=== PATIENT | female | born 1985 | race Two or more races ===

== ENCOUNTER 2017-12-23 09:03 | Day surgery (SDC) | payer OTHER ==
[2017-12-23] MEDS ORDERED: PROPOFOL 20 ML (13:34)
[2017-12-23] MEDS ORDERED: NEOSTIGMINE 3 MG/3 ML SYRINGE (13:34)
[2017-12-23] MEDS ORDERED: LIDOCAINE 2% (SDV) 5 ML INJ (13:34)
[2017-12-23] MEDS ORDERED: ROCURONIUM 50 MG INJ (13:34)
[2017-12-23] MEDS ORDERED: GLYCOPYRROLATE 0.4 MG INJ ×2 (13:34→14:21)
[2017-12-23] MEDS ORDERED: SUCCINYLCHOLINE CHLORIDE 100 MG/5 ML SYG IV (13:34)
[2017-12-23] MEDS ORDERED: MEPERIDINE 100 MG INJ (13:36)
[2017-12-23] MEDS: NEOMYC/POLYMYX/BACIT 30 GM OINT (13:36)
[2017-12-23] MEDS: COCAINE 4% 4 ML TOP (13:36)
[2017-12-23] MEDS: LIDOCAINE 1%/EPI (1:100,000) (MDV) 20 ML INJ (13:36)
[2017-12-23] MEDS ORDERED: DEXAMETHASONE 4 MG/ML 1 ML INJ (14:12)
[2017-12-23] MEDS ORDERED: ONDANSETRON 4 MG INJ (14:12)
[2017-12-23] MEDS: FENTAnyl 50 MCG/ML VIAL IV (14:55)
[2017-12-23] MEDS ORDERED: HYDROmorphONE 1 MG/5 ML IV SYRINGE IV ×3 (15:00)
[2017-12-23] MEDS ORDERED: LABETALOL HCL 20MG INJ IV (15:00)
[2017-12-23] MEDS ORDERED: DIPHENHYDRAMINE 50 MG INJ IV (15:00)
[2017-12-23] MEDS ORDERED: ONDANSETRON 4 MG INJ IV (15:00)
[2017-12-23] MEDS ORDERED: OXYCODONE/ACETAMINOPHEN (5/325) TAB PO (15:00)
[2017-12-23] MEDS ORDERED: hydrALAzine 20 MG INJ IV (15:00)
[2017-12-23] MEDS ORDERED: MEPERIDINE 25 MG INJ IV (15:00)
[2017-12-23] MEDS ORDERED: METOCLOPRAMIDE 10 MG INJ IV (15:00)
[2017-12-23] MEDS ORDERED: FENTAnyl 50 MCG/ML VIAL IV ×2 (15:00)
[2017-12-23] MEDS ORDERED: EPHEDrine SULFATE 50 MG/5 ML SYG IV (15:00)
[2017-12-23] MEDS ORDERED: MIDAZOLAM 1 MG/ML 2 ML INJ IV (15:00)
[2017-12-23] MEDS: OXYCODONE/ACETAMINOPHEN (5/325) TAB PO (15:45)
== END 2017-12-23 16:26 | disposition home or self-care (01) ==
LOC: SDS 09:03
DX: J34.2 Deviated nasal septum (principal)
CPT/HCPCS: 30140; 88300

== ENCOUNTER 2018-10-21 18:49 | Outpatient (CLI) | payer OTHER ==
[2018-10-21 20:40] LABS: ADD MAN DIFF? NO
[2018-10-21 20:46] LABS: WHITE BLOOD COUNT 14.1 10^3/ul (4.8-10.8)
[2018-10-21 20:46] LABS: BASOPHILS % 0.3 % (0.0-2.0); EOSINOPHILS # 0.2 10^3/ul (0.0-0.5); EOSINOPHILS % 1.4 % (0.0-7.0); HEMATOCRIT 33.2 % (37.0-47.0); HEMOGLOBIN 10.9 g/dl (12.0-16.0); LYMPHOCYTES # 1.9 10^3/ul (0.8-2.9); LYMPHOCYTES % 13.4 % (15.0-51.0); MEAN CORPUSCULAR HEMOGLOBIN 27.7 pg (29.0-33.0); MEAN CORPUSCULAR HGB CONC 32.8 g/dl (32.0-37.0); MEAN CORPUSCULAR VOLUME 84.5 fl (82.0-101.0); MONOCYTE # 0.9 10^3/ul (0.3-0.9); MONOCYTES % 6.6 % (0.0-11.0); NEUTROPHIL # 10.8 10^3/ul (1.6-7.5); NEUTROPHILS % 76.2 % (39.0-77.0); PLATELET COUNT 344 10^3/UL (140-415); RED BLOOD COUNT 3.93 10^6/ul (4.20-5.40); RED CELL DISTRIBUTION WIDTH 13.1 % (11.5-14.5)
[2018-10-21 20:54] LABS: ADD UMIC YES; UR ASCORBIC ACID NEGATIVE (NEGATIVE); UR BACTERIA FEW /HPF (NONE SEEN); UR BILIRUBIN (Dip) NEGATIVE (NEGATIVE); UR BLOOD (Dip) NEGATIVE (NEGATIVE); UR CLARITY SLIGHTLY CLOUDY (CLEAR); UR COLOR YELLOW (YELLOW); UR GLUCOSE (Dip) NEGATIVE (NEGATIVE); UR KETONES (Dip) NEGATIVE (NEGATIVE); UR LEUKOCYTE ESTERASE (Dip) TRACE Leu/ul (NEGATIVE); UR MUCUS FEW /HPF (NONE SEEN); UR NITRITE (Dip) NEGATIVE (NEGATIVE); UR RBC 1 /HPF (0-5); UR SPECIFIC GRAVITY (Dip) 1.019 (1.003-1.030); UR SQUAMOUS EPITHELIAL CELL FEW /HPF (FEW); UR TOTAL PROTEIN (Dip) NEGATIVE (NEGATIVE); UR UROBILINOGEN (Dip) NEGATIVE (NEGATIVE); UR WBC 3 /HPF (0-5)
[2018-10-21 21:04] LABS: ALANINE AMINOTRANSFERASE 22 IU/L (13-69); ALBUMIN 3.8 g/dl (3.3-4.9); ALBUMIN/GLOBULIN RATIO 0.97; ALKALINE PHOSPHATASE 99 IU/L (42-121); ANION GAP 9 (5-13); ASPARTATE AMINO TRANSFERASE 23 IU/L (15-46); BILIRUBIN,INDIRECT 0.5 mg/dl (0-1.1); BILIRUBIN,TOTAL 0.5 mg/dl (0.2-1.3); BLOOD UREA NITROGEN 6 mg/dl (7-20); CALCIUM 8.9 mg/dl (8.4-10.2); CARBON DIOXIDE 22 mmol/L (21-31); CHLORIDE 104 mmol/L (97-110); CREATININE 0.46 mg/dl (0.44-1.00); Estimated GFR > 60 mL/min (>60); GLUCOSE 88 mg/dl (70-220); POTASSIUM 3.6 mmol/L (3.5-5.1); SODIUM 135 mmol/L (135-144); TOTAL PROTEIN 7.7 g/dl (6.1-8.1)
== END 2018-10-21 23:02 | disposition home or self-care (01) ==
LOC: OBT 18:49 → L-D 18:50 → OBT 23:02
DX: O9A.212 Injury, poisoning and certain other consequences of external causes complicating pregnancy, second trimester (principal); S39.91XA Unspecified injury of abdomen, initial encounter; V43.52XA Car driver injured in collision with other type car in traffic accident, initial encounter; Y92.410 Unspecified street and highway as the place of occurrence of the external cause; O34.12 Maternal care for benign tumor of corpus uteri, second trimester; O36.8130 Decreased fetal movements, third trimester, not applicable or unspecified; O60.02 Preterm labor without delivery, second trimester; Z3A.25 25 weeks gestation of pregnancy
CPT/HCPCS: 76815; 76817; 76818; 80053; 81001; 85025; 85460; 86850; 86900; 86901; 87086; 93971

== ENCOUNTER 2019-02-02 07:32 | Inpatient (IN) | payer OTHER ==
[2019-02-02] MEDS ORDERED: METHYLERGONOVINE 0.2 MG INJ IM ×3 (11:00→21:30)
[2019-02-02] MEDS ORDERED: MISOPROSTOL 200 MCG TAB PR ×3 (11:00→21:30)
[2019-02-02] MEDS ORDERED: LIDOCAINE 1% (MPF) 30 ML INJ INJ (11:00)
[2019-02-02] MEDS ORDERED: CARBOPROST 250 MCG INJ IM ×3 (11:00→21:30)
[2019-02-02] MEDS ORDERED: BUTORPHANOL 2 MG INJ IV (11:00)
[2019-02-02] MEDS ORDERED: OXYCODONE/ASPIRIN (4.88/325) TAB PO (11:00)
[2019-02-02] MEDS ORDERED: OXYTOCIN 30 UNITS/LR 500 ML IV ×3 (11:00→21:30)
[2019-02-02] MEDS ORDERED: IBUPROFEN 600 MG TAB PO (11:00)
[2019-02-02] MEDS: LACTATED RINGER'S 1,000 ML IV ×2 (12:08→18:07)
[2019-02-02] MEDS: MISOPROSTOL 50 MCG CAPSULE PO (12:23)
[2019-02-02 12:32] LABS: ADD MAN DIFF? NO
[2019-02-02 12:36] LABS: WHITE BLOOD COUNT 9.9 10^3/ul (4.8-10.8)
[2019-02-02 12:36] LABS: BASOPHILS % 0.3 % (0.0-2.0); EOSINOPHILS # 0.1 10^3/ul (0.0-0.5); HEMATOCRIT 38.7 % (37.0-47.0); HEMOGLOBIN 12.7 g/dl (12.0-16.0); LYMPHOCYTES # 1.4 10^3/ul (0.8-2.9); LYMPHOCYTES % 14.1 % (15.0-51.0); MEAN CORPUSCULAR HEMOGLOBIN 28.7 pg (29.0-33.0); MEAN CORPUSCULAR HGB CONC 32.8 g/dl (32.0-37.0); MEAN CORPUSCULAR VOLUME 87.6 fl (82.0-101.0); MEAN PLATELET VOLUME 12.1 fl (7.4-10.4); MONOCYTE # 0.9 10^3/ul (0.3-0.9); MONOCYTES % 8.7 % (0.0-11.0); NEUTROPHIL # 7.5 10^3/ul (1.6-7.5); NEUTROPHILS % 75.2 % (39.0-77.0); PLATELET COUNT 253 10^3/UL (140-415); RED BLOOD COUNT 4.42 10^6/ul (4.20-5.40); RED CELL DISTRIBUTION WIDTH 15.8 % (11.5-14.5)
[2019-02-02 12:58] LABS: ALANINE AMINOTRANSFERASE 16 IU/L (13-69); ALBUMIN 3.9 g/dl (3.3-4.9); ALBUMIN/GLOBULIN RATIO 0.95; ALKALINE PHOSPHATASE 164 IU/L (42-121); ANION GAP 7 (5-13); ASPARTATE AMINO TRANSFERASE 19 IU/L (15-46); BILIRUBIN,INDIRECT 0.2 mg/dl (0-1.1); BILIRUBIN,TOTAL 0.2 mg/dl (0.2-1.3); BLOOD UREA NITROGEN 7 mg/dl (7-20); CALCIUM 9.4 mg/dl (8.4-10.2); CARBON DIOXIDE 23 mmol/L (21-31); CHLORIDE 106 mmol/L (97-110); Estimated GFR > 60 mL/min (>60); GLUCOSE 86 mg/dl (70-220); INR 0.88; POTASSIUM 4.4 mmol/L (3.5-5.1); PT RATIO 0.9; SODIUM 136 mmol/L (135-144); URIC ACID 5.2 mg/dl (3.1-7.9)
[2019-02-02 12:59] LABS: PARTIAL THROMBOPLASTIN TIME 28.3 Sec (23.0-35.0)
[2019-02-02 13:37] LABS: HEPATITIS B SURFACE ANTIGEN NEGATIVE (NEGATIVE)
[2019-02-02 16:16] LABS: RAPID PLASMA REAGIN NONREACTIVE (NR)
[2019-02-02] MEDS: OXYTOCIN 30 UNITS/LR 500 ML IV ×3 (17:01→22:35)
[2019-02-02] MEDS ORDERED: CEFAZOLIN 2 GM/50 ML (PMX) 50 ML IVPB (18:30)
[2019-02-02] MEDS ORDERED: OXYTOCIN 30 UNITS/LR 500 ML BAG IV (19:40)
[2019-02-02] MEDS ORDERED: morphine SULFATE/PF (10 MG/10 ML) INJ (19:41)
[2019-02-02] MEDS ORDERED: PHENYLephrine (100 MCG/ML) 10ML SYG (19:41)
[2019-02-02] MEDS ORDERED: OXYTOCIN 10 UNIT INJ (19:41)
[2019-02-02] MEDS ORDERED: KETOROLAC 30 MG INJ (19:49)
[2019-02-02] MEDS ORDERED: METOCLOPRAMIDE 10 MG INJ (19:49)
[2019-02-02] MEDS ORDERED: ONDANSETRON 4 MG INJ (19:49)
[2019-02-02] MEDS ORDERED: DEXAMETHASONE 4 MG/ML 1 ML INJ (19:49)
[2019-02-02 20:41] LABS: CBV Base Excess -5.9 mmol/L; CBV COHb 0.3 %; CBV Oxygen Sat 18.5 mmHG; Cord Blood Venous pO2 12.9 mmHG (15.0-45.0); Fraction OxyHgb Cord Venous 18.1 %; MODE ROOM AIR; MetHgb Cord Venous 1.9 %; Sample Type CBV; Site CORD
[2019-02-02] MEDS ORDERED: HYDROmorphONE 0.5 MG/0.5 ML SYG IV ×2 (21:00)
[2019-02-02] MEDS ORDERED: ONDANSETRON 4 MG INJ IV (21:00)
[2019-02-02] MEDS ORDERED: morphine 2 MG INJ IV ×2 (21:00)
[2019-02-02] MEDS ORDERED: HYDROCODONE/APAP (5/325) TAB PO (21:00)
[2019-02-02] MEDS ORDERED: ACETAMINOPHEN 500 MG TAB PO (21:00)
[2019-02-02] MEDS ORDERED: NALBUPHINE HCL (10 MG/1 ML) INJ IV (21:00)
[2019-02-02] MEDS ORDERED: DIPHENHYDRAMINE 50 MG INJ IV (21:00)
[2019-02-02] MEDS ORDERED: NALOXONE (0.4 MG/ML) INJ IV (21:00)
[2019-02-02] MEDS ORDERED: METHYLERGONOVINE 0.2 MG TAB PO (21:30)
[2019-02-03] MEDS: ONDANSETRON 4 MG INJ IV (00:29)
[2019-02-03] MEDS: MISOPROSTOL 50 MCG CAPSULE PO (00:29)
[2019-02-03] MEDS: CITRIC ACID/NA CITRATE 30 ML CUP PO (00:30)
[2019-02-03] MEDS: OXYTOCIN 30 UNITS/LR 500 ML IV (02:12)
[2019-02-03 04:57] LABS: ADD MAN DIFF? NO
[2019-02-03 05:00] LABS: BASOPHILS % 0.2 % (0.0-2.0); EOSINOPHILS % 0.1 % (0.0-7.0); HEMATOCRIT 33.2 % (37.0-47.0); HEMOGLOBIN 10.9 g/dl (12.0-16.0); LYMPHOCYTES # 1.1 10^3/ul (0.8-2.9); LYMPHOCYTES % 6.9 % (15.0-51.0); MEAN CORPUSCULAR HEMOGLOBIN 28.5 pg (29.0-33.0); MEAN CORPUSCULAR HGB CONC 32.8 g/dl (32.0-37.0); MEAN CORPUSCULAR VOLUME 86.7 fl (82.0-101.0); MONOCYTE # 0.7 10^3/ul (0.3-0.9); MONOCYTES % 4.6 % (0.0-11.0); NEUTROPHIL # 13.8 10^3/ul (1.6-7.5); NEUTROPHILS % 87.8 % (39.0-77.0); PLATELET COUNT 218 10^3/UL (140-415); RED BLOOD COUNT 3.83 10^6/ul (4.20-5.40); RED CELL DISTRIBUTION WIDTH 15.2 % (11.5-14.5)
[2019-02-03 05:00] LABS: WHITE BLOOD COUNT 15.7 10^3/ul (4.8-10.8)
[2019-02-03 05:19] LABS: ANION GAP 5 (5-13); BLOOD UREA NITROGEN 8 mg/dl (7-20); CALCIUM 8.6 mg/dl (8.4-10.2); CARBON DIOXIDE 24 mmol/L (21-31); CHLORIDE 106 mmol/L (97-110); CREATININE 0.55 mg/dl (0.44-1.00); Estimated GFR > 60 mL/min (>60); GLUCOSE 94 mg/dl (70-220); POTASSIUM 4.1 mmol/L (3.5-5.1); SODIUM 135 mmol/L (135-144)
[2019-02-03] MEDS: KETOROLAC 30 MG INJ IV ×2 (05:47→18:29)
[2019-02-03] MEDS: LACTATED RINGER'S 1,000 ML IV ×3 (07:10→11:20)
[2019-02-03] MEDS: SENNA/DOCUSATE NA (8.6MG/50MG) TAB PO ×2 (09:00→22:06)
[2019-02-03] MEDS ORDERED: HYDROCODONE/APAP (5/325) TAB PO (09:30)
[2019-02-03] MEDS: IBUPROFEN 800 MG TAB PO (23:55)
[2019-02-04] MEDS: HYDROCODONE/APAP (5/325) TAB PO ×3 (02:25→19:05)
[2019-02-04] MEDS: IBUPROFEN 800 MG TAB PO ×2 (05:35→23:29)
[2019-02-04] MEDS: MAGNESIUM HYDROXIDE 30ML CUP PO ×2 (09:42→20:57)
[2019-02-04] MEDS: BISACODYL 10 MG SUPP PR ×2 (09:42→20:57)
[2019-02-04] MEDS: SENNA/DOCUSATE NA (8.6MG/50MG) TAB PO ×2 (09:42→20:57)
[2019-02-05] MEDS: LANOLIN HPA 1 PKT TOP (04:09)
[2019-02-05 05:27] LABS: ADD MAN DIFF? NO
[2019-02-05 05:33] LABS: WHITE BLOOD COUNT 13.4 10^3/ul (4.8-10.8)
[2019-02-05 05:33] LABS: BASOPHILS % 0.1 % (0.0-2.0); EOSINOPHILS # 0.3 10^3/ul (0.0-0.5); EOSINOPHILS % 1.9 % (0.0-7.0); HEMATOCRIT 29.6 % (37.0-47.0); HEMOGLOBIN 9.5 g/dl (12.0-16.0); LYMPHOCYTES # 1.6 10^3/ul (0.8-2.9); LYMPHOCYTES % 11.6 % (15.0-51.0); MEAN CORPUSCULAR HEMOGLOBIN 28.1 pg (29.0-33.0); MEAN CORPUSCULAR HGB CONC 32.1 g/dl (32.0-37.0); MEAN CORPUSCULAR VOLUME 87.6 fl (82.0-101.0); MEAN PLATELET VOLUME 11.7 fl (7.4-10.4); MONOCYTE # 0.8 10^3/ul (0.3-0.9); MONOCYTES % 6.3 % (0.0-11.0); NEUTROPHIL # 10.6 10^3/ul (1.6-7.5); PLATELET COUNT 243 10^3/UL (140-415); RED BLOOD COUNT 3.38 10^6/ul (4.20-5.40)
[2019-02-05] MEDS: IBUPROFEN 800 MG TAB PO ×2 (05:53→13:27)
[2019-02-05] MEDS: MEASLES,MUMPS,RUBELLA VACCINE INJ SC* (09:00)
[2019-02-05] MEDS: SENNA/DOCUSATE NA (8.6MG/50MG) TAB PO (09:54)
[2019-02-05] MEDS: DIPHTH/TET/ACEL PERTUSS (ADULT) 0.5 ML VIAL IM* (11:18)
[2019-02-05] MEDS: HYDROCODONE/APAP (5/325) TAB PO (12:05)
== END 2019-02-05 15:25 | disposition home or self-care (01) | DRG 788 ==
LOC: L-D 07:32 → MS1 23:55
PROVIDERS: Obstetrics & Gynecology
PROC: 10D00Z1 Extraction of Products of Conception, Low, Open Approach (ICD-10-PCS; principal; 2019-02-02 19:30)
PROC: 3E033VJ Introduction of Other Hormone into Peripheral Vein, Percutaneous Approach (ICD-10-PCS; 2019-02-02 19:30)
DX: O76 Abnormality in fetal heart rate and rhythm complicating labor and delivery (principal); Z3A.40 40 weeks gestation of pregnancy; Z37.0 Single live birth; O34.13 Maternal care for benign tumor of corpus uteri, third trimester
CPT/HCPCS: 36415; 76815; 76818; 80048; 80053; 82803; 84560; 85025; 85610; 85730; 86592; 86850; 86900; 86901; 87340; 90715; 99464